=== PATIENT | male | born 1950 | race Two or more races ===

== ENCOUNTER → 2017-10-30 | Outpatient (CLI) | payer OTHER | END | disposition home or self-care (01) | LOC: PPHC 13:57 | DX: Z00.00 Encounter for general adult medical examination without abnormal findings (principal) ==

== ENCOUNTER 2018-01-11 09:47 | Emergency (ER) | payer OTHER ==
[~2018-01-11] VITALS: Ht 152.4 cm; Wt 97.5 kg
== END 2018-01-11 15:35 | disposition home or self-care (01) ==
LOC: ER 09:47
DX: G51.0 Bell's palsy (principal)

== ENCOUNTER 2018-12-09 08:32 | Outpatient (CLI) | payer OTHER | END 2018-12-09 09:23 | disposition home or self-care (01) | LOC: RAD 501 08:32 | DX: M25.571 Pain in right ankle and joints of right foot (principal); S93.401A Sprain of unspecified ligament of right ankle, initial encounter ==

== ENCOUNTER 2019-05-01 11:43 | Emergency (ER) | payer OTHER ==
[~2019-05-01] VITALS: Ht 177.8 cm; Wt 97.5 kg
== END 2019-05-01 15:45 | disposition home or self-care (01) ==
LOC: ER 11:43
DX: R53.81 Other malaise (principal); R51 Headache

== ENCOUNTER → 2021-07-15 | Emergency (ER) | payer OTHER ==
[~2021-07-15] VITALS: Ht 177.8 cm; Wt 95.3 kg
== END | disposition left against medical advice (07) ==
LOC: ER 09:36
DX: Z53.21 Procedure and treatment not carried out due to patient leaving prior to being seen by health care provider (principal)

== ENCOUNTER 2024-07-24 13:26 | Outpatient (CLI) | payer OTHER | END 2024-07-24 13:33 | disposition home or self-care (01) | LOC: RAD 13:26 | DX: M25.561 Pain in right knee (principal); M25.562 Pain in left knee ==

== ENCOUNTER 2025-01-12 11:46 | Outpatient (CLI) | payer OTHER | END 2025-01-12 11:55 | disposition home or self-care (01) | LOC: TOM 11:46 | PROVIDERS: ATTEND Internal Medicine | DX: R04.9 Hemorrhage from respiratory passages, unspecified (principal); R91.8 Other nonspecific abnormal finding of lung field ==

== ENCOUNTER 2025-03-08 13:48 | Emergency (ER) | payer OTHER ==
[~2025-03-08] VITALS: Ht 177.8 cm; Wt 96.2 kg
[2025-03-08] MEDS ORDERED: DILTIAZEM HCL 125MG/25ML VIAL IV SCH (15:00)
[2025-03-08 15:22] LABS: BASO % 0.7 % (0.1-1.2); EOS # 0.03 (0.04-0.54); EOS % 0.3 % (0.7-7.0); LYMPH # 1.90 (1.18-3.74); LYMPH % 17.7 % (19.3-53.1); MEAN PLATELET VOLUME 10.10 fl (9.4-12.4); MONO # 0.75 (0.24-0.82); MONO % 7.0 % (4.7-12.5); NEUT # 7.90 (1.56-6.13); NEUT % 73.3 % (34.0-71.1); RED CELL DISTRIBUTION WIDTH 12.3 % (11.6-14.4)
[2025-03-08] MEDS ORDERED: NITROGLYCERIN IN 5 % DEXTROSE 50 MG/250 ML BOTTLE IV ONE (15:45)
[2025-03-08 15:51] LABS: ALT/SGPT 21.0 U/L (12-78); AST/SGOT 21.0 U/L (15-37); BILIRUBIN TOTAL 0.62 mg/dL (0.3-1.2); BUN CREA RATIO 14.0 (7.0-25.0); CREATININE SERUM 1.81 mg/dL (0.70-1.30); GFR 36.73; GLOBULINA 3.2 G/DL (2.4-3.5); GLUCOSE FASTING 110.0 mg/dL (65-100); OSMOLALITY SERUM 290.0 MOSM/KG (275-295)
[2025-03-08] MEDS ORDERED: NITROGLYCERIN 250 ML IV SCH (16:00)
[2025-03-08] MEDS ORDERED: NITROGLYCERIN IN 5 % DEXTROSE 250 ML IV SCH (16:30)
[2025-03-08] MEDS ORDERED: 0.9 % SODIUM CHLORIDE 1,000 ML IV ONE (17:00)
[2025-03-08 17:44] LABS: URINE APPEARANCE Clear; URINE BILIRRUBIN Negative (NEGATIVE); URINE BLOOD Negative; URINE COLOR Yellow; URINE GLUCOSE Negative (NEGATIVE); URINE KETONE Negative (NEGATIVE); URINE LEUKOCYTE Negative; URINE NITRATE Negative; URINE PROTEIN Negative (NEGATIVE); URINE UROBILINOGEN 0.2 E.U./dl
[2025-03-08 17:48] LABS: URINE CAST 1.46 uL (0.0-1.40); URINE EPITHELIAL CELLS 2.4 uL (0.0-38.8)
[2025-03-08 17:53] LABS: URINE BACTERIA 2.3 uL (0.0-1933); URINE RBC 1.9 uL (0.0-20.8); URINE WBC 0.7 uL (0.0-23.2)
== END 2025-03-08 19:50 | disposition home or self-care (01) ==
LOC: ER 13:48
PROVIDERS: Emergency Medicine; General Practice
DX: R42 Dizziness and giddiness (principal); R00.2 Palpitations; E86.0 Dehydration
CPT/HCPCS: 36415; 71045; 93005; 93041; 94760; 96365; 96366; 99283; J3490 ×2; J7030